=== PATIENT | female | born 1975 | race Caucasian/White ===

== ENCOUNTER → 2017-11-17 15:01 | Outpatient (CLI) | payer OTHER, SELFPAY ==
[2017-11-28 15:20] LABS: HPV HC, High Risk Negative (Negative); HPV Reflexed? YES, CHARGE PATIENT
== END ==
PROVIDERS: Visit Provider Obstetrics & Gynecology
DX: Z12.4 Encounter for screening for malignant neoplasm of cervix (principal)
CPT/HCPCS: 87624; 88175; G0145

== ENCOUNTER → 2018-07-20 14:06 | Outpatient (CLI) | payer OTHER, SELFPAY ==
--- NOTE | 2018-07-20 14:11 | BI_ITS ---
MAMMOGRAPHY - BILATERAL SCREENING 3-D JORGE SYNTHESIS REASON FOR EXAM: Female, 43 years old. Bilateral Screening 3-D tomosynthesis PERTINENT HISTORY: No significant family history. TECHNIQUE: 2-D mammograms and 3-D Jorge synthesis of the breast (s) were performed. CAD was performed. COMPARISON: None. FINDINGS: The breast composition is heterogeneous fibroglandular tissue may obscure tiny masses. In the right breast and near the chest wall there is 1.8 x 0.9 cm mass-like lesion contains microcalcifications which are not branching but slightly increased in number since the previous examination December 22, 2015 and this is slightly more prominent or slightly denser than before, for this reason I do highly recommend MRI with and without contrast for better assessment. Otherwise no skin thickening or nipple retraction. There are multiple benign looking lymph nodes involving both axillary areas. BI/SCREENING MAMM (CAD), BILAT IMPRESSION: Mass-like lesion near the chest wall seen better in the craniocaudal view on the right side that contains microcalcifications although these calcifications are not branching but slightly increased in number since the previous exam of November 2015 for which MRI is recommended with contrast. ASSESSMENT CATEGORY: BIRADS-0 Approximately 10% of breast cancers are not detected by mammography. A normal mammogram should not delay biopsy of a clinically suspicious abnormality. Electronically Signed: Belen Sexton, at 8:32 EST Tel , Service support ,
== END ==
PROVIDERS: Referring Provider Obstetrics & Gynecology; Visit Provider Obstetrics & Gynecology
DX: Z12.31 Encounter for screening mammogram for malignant neoplasm of breast (principal)
CPT/HCPCS: 77063; 77067

== ENCOUNTER → 2018-08-07 12:20 | Outpatient (CLI) | payer OTHER, SELFPAY ==
--- NOTE | 2018-08-07 12:27 | MRI_ITS ---
STUDY: BILATERAL BREAST MR WITHOUT AND WITH CONTRAST REASON FOR EXAM: Female, 43 years old. Breast MRI recommended from screening mammogram dated July 20, 2018. TECHNIQUE: Multi-sequence multi-echo imaging of both breasts was performed with a dedicated breast coil. T1-weighted and T2-weighted images were performed before the administration of contrast. T1-weighted images were also performed after the administration of 11ml mL of Gadavist contrast intravenously without complications. COMPARISON: Screening mammogram dated July 20, 2018 and December 22, 2015. FINDINGS: RIGHT BREAST: The breast tissue is scattered fibroglandular densities with minimal background enhancement. There are no abnormal enhancing masses or areas of non-mass enhancement in the right breast. There is no abnormality in the area of the calcifications described on the screening mammogram. The patient should return for compression magnification ML and cc views of the right breast for further evaluation of the calcifications. These calcifications are marked on the MLO and CC views. LEFT BREAST: The breast tissue is scattered fibroglandular densities with minimal background enhancement. There are no abnormal enhancing masses or areas of non-mass enhancement in the left breast. There are no enlarged or abnormal lymph nodes. There is no abnormality in the visualized regions of the chest or liver. MRI/Breast Bilateral W/O and W IMPRESSION: Unremarkable breast MR examination with contrast. Patient should return for diagnostic mammographic workup of calcifications described on the screening mammogram, as outlined above. CATEGORY: BIRADS Category 0: Incomplete. Need additional imaging evaluation. A letter regarding these results will be sent to the patient by the facility within 30 days. Electronically Signed: Tico Guzmán MD at 12:04 EST , Service support ,
[2018-08-07 13:01] LABS: CREATININE FINGERSTICK 0.8 mg/dL (0.55-1.02); EGFR FINGERSTICK > 60.0000 mL/min (>60)
== END ==
PROVIDERS: Referring Provider Obstetrics & Gynecology; Visit Provider Obstetrics & Gynecology
DX: R92.2 Inconclusive mammogram (principal); N63.10 Unspecified lump in the right breast, unspecified quadrant; Z01.812 Encounter for preprocedural laboratory examination
CPT/HCPCS: 77049; A9585; C8908

== ENCOUNTER → 2018-08-16 09:30 | Outpatient (CLI) | payer OTHER, SELFPAY ==
--- NOTE | 2018-08-16 09:52 | BI_ITS ---
MAMMOGRAPHY - UNILATERAL DIAGNOSTIC: RIGHT BREAST REASON FOR EXAM: Female, 43 years old. Abnormal screening mammogram. PERTINENT HISTORY: Non-contributory. TECHNIQUE: Magnification spot views of the right breast were obtained in the ML and craniocaudal views. CAD: Full Field Digital Mammography with Computer Added Detection was performed. COMPARISON: Comparison is made with prior mammogram dated July 20, 2018. FINDINGS: Breast Composition: The breasts are heterogeneously dense, which may obscure small masses. The cluster microcalcification is once again seen in the deep mid aspect of the breast. A biopsy is recommended for further evaluation. No other significant abnormalities are identified. BI/DIAG MAMM W/CAD, UNILAT IMPRESSION: The microcalcifications are once again seen. A biopsy recommended for further evaluation. ASSESSMENT CATEGORY: BIRADS Category 4: Suspicious - Biopsy Should Be Considered. A letter regarding these results will be sent to the patient by the facility within 30 days. Approximately 10% of breast cancers are not detected by mammography. A normal mammogram should not delay biopsy of a clinically suspicious abnormality. Electronically Signed: Yahir Linder MD at 11:01 EST Tel [phone], Service support ,
--- OUTSIDE RECORDS SUMMARY | 2018-10-20 23:21 | XMS RPT_ITS ---
:1975 Author Organization OHIP Care Team Providers Name Role Phone Shayla Lowe Attending Unavailable Shayla Lowe Referring Unavailable Primay Care Physicia, No Primary Care Unavailable Shayla Lowe Attending Unavailable Gerri Loweily Referring Unavailable Primay Care Physicia, No Primary Care Unavailable JairsGerriShayla Attending Unavailable Gerri Loweily Referring Unavailable Primay Care Physicia, No Primary Care Unavailable Javier Kellre Attending Unavailable Mynor, Shayla Referring Unavailable Javier Keller Attending Unavailable Primay Care Physicia, No Primary Care Unavailable Javier Keller Attending Unavailable Primay Care Physicia, No Primary Care Unavailable Javier Keller Consulting Unavailable Shayla Lowe Attending Unavailable Primay Care Physicia, No Primary Care Unavailable PROBLEMS PROBLEMS DATE TYPE CONDITION / CODE ATTENDING STATUS SOURCE 08/21/2018 Unknown R92.0 - Mammographic Krishna Active [place] microcalcification Javier Vanegas found on diagnostic Hospital imaging of breast / Repository R92.0(ICD-10) 08/16/2018 Unknown R92.2 - Inconclusive Shayla Lowe Active [place] mammogram / Community R92.2(ICD-10) Hospital Repository 11/17/2017 Unknown Z12.4 - Encounter for Shayla Lowe Active [place] screening for malignant Community neoplasm of cervix / Hospital Z12.4(ICD-10) Repository PROCEDURES PROCEDURES No Procedure Records FoundRESULTS RESULTS OPERATIVE REPORT Observed: 08/22/2018 Status: F Source: [place] 12:48 PM [facility] REPOSITORY [facility] Medical Records Department [address] [place] [address] Operative Report 08/22/18 1245 MR#: [id number] Acct: [id number] Name: ANDREW MOTA Rep #: [id number] : 1975 43 From: Javier Keller MD PCP: Care Physician, No Primary Status: REG CLI Y Location: [facility] Problem List (1) Microcalcification of right breast on mammogram Status: Acute Report of Operation Date of Procedure: 08/22/18 Pre-Operative Diagnosis: Microcalcifications of the right breast Post-Operative Diagnosis: Same Surgery/Procedure Performed:: Right stereotactic breast biopsy Type of Anesthesia:: Local Estimated Blood Loss (mL): < 25 cc Description of Procedure: Patient was brought into the mammography unit. Placed in the prone position on the Stewart table. The right breast was brought down through the opening. A lateral to medial view was obtained. Also -15 degrees views were obtained. I targeted on the microcalcifications. I prepped the breast with Betadine. I injected local. A skin debbie was made. Needle was placed in the prefire position. 2 more stereo views were obtained showing the needle to be adequately targeted. I fired the needle took 360 degrees circumferential biopsies. I x-ray my specimens. Microcalcifications were present. I backed the needle off 7 mm and placed a Gelfoam titanium clip into the wound. I removed the needle. I obtain 2 more stereo views showing the clip to be in good placement. Steri-Strips are applied sterile dressings were applied and the patient tolerated the procedure well. - Admit VTE Documentation VTE Present on Admission: No VTE Mechan Device Prophylaxis: None VTE Pharm Prophylaxis ordered?: No Reason prophylaxis not ordered:: Treatment Not Indicated 08/22/18 1248 <Electronically signed by Javier Keller MD> Date Javier Keller MD CC: No Primary Care Physician; Javier Keller MD; Shayla Lowe MD Signed BREAST BIOPSY Observed: 08/22/2018 Status: F Source: [place] (CHOOSE SITE) 11:45 AM [facility] REPOSITORY Patient: ANDREW MOTA : 1975 (43/F) Acct Num: [id number] Phys: Krishna TAMAYO,Javier Unit Num: [id number] Loc: [facility] Specimen: [id number] Received: 08/22/18 - 1211 Spec Type: BREAST BX TISSUES 1 TISSUES: Right breast, NOS GROSS DESCRIPTION Received is one container labeled with the patient's name and not further designated. The specimen consists of multiple irregular and elongated fragments of pugh-yellow soft tissue that in aggregate measure 6 x 3.5 x 0.2 cm. The specimen is totally submitted in three cassettes. / AM:lavinia 08/22/18 TC:5 CPT: 99164 HEADER OPERATION: Right breast stereotactic biopsy PRE-OP DIAGNOSIS: Right breast microcalcifications deep mid breast TISSUE SUBMITTED: Right breast core tissue ISCHEMIC TIME: 2 minutes FIXATION TIME: 7.5 hours MICROSCOPIC DESCRIPTION Slides are reviewed. MICROSCOPIC DIAGNOSIS Right breast, stereotactic core biopsy: Focal intraductal hyperplasia without atypia. Fibrocystic change. Banal microcalcifications. No evidence of malignancy. AM:lavinia 08/23/18 Signed Florentino Bansal DO 08/23/18 <signature on file> Performed By: #### PBRBX #### [facility] [place], [address] SURGERY VISIT REPORT Observed: 08/21/2018 Status: F Source: [place] 9:23 AM [facility] REPOSITORY [facility] [address] [place] [address] OFFICE VISIT Date of Service: 08/21/18 MR#: [id number] Acct: [id number] Name: ANDREW MOTA Rep #: [id number] : 1975 Provider: Javier Keller MD Age/Sex: 43/F Location: [facility] Status: Signed Intake Vital Signs08/21/18 Height 5 ft 9 in 08/21/18 Weight: 173 lb 11 oz Intake Visit Reasons: L Breast [place] 4 Berry Grower Required: No Is patient in pain?: No Allergies No Known Allergies Allergy (Unverified 08/21/18 09:11) Medications NK 08/21/18 [History Confirmed 08/21/18] PFSH Medical History Abnormal mammogram of right breast (Acute) Hypertension (Chronic) Surgical History No history of previous surgery (Acute) Family History Mother Arthritis Hypertension Father Hypertension Social History Smoking Status: Never smoker alcohol intake: never substance use type: does not use HPI HPI HPI: ANDREW MOTA, is a 43 F who presents to the office today for who presents with an abnormal mammogram patient had a mammogram and ultrasound and an MRI which showed micro calcifications in her right breast which were deep to the chest wall and best seen on the cc view. This is a change from her previous mammogram. Her MRI of the breast was read as negative. She has not been noticing any changes in her breast exam. She has had no nipple discharge. She is not complaining of any other new lumps or bumps. She has never had a breast biopsy before. ROS General General: No weight change, appetite, fatigue, colon cancer, breast cancer or weakness HEENT HEENT: Yes eye surgery; no difficulty swallowing, eye injury, swollen glands or hoarseness Endo Endocrine: No thyroid disease, diabetes mellitus, thyroid cancer, Hair loss, heat intolerance or cold intolerance Skin Skin: No rash or changing moles Breast Breast: No left breast lump, right breast lump, nipple discharge, breast pain, abnormal mammogram, abnormal US or breast enlargement Musc Musculoskeletal: No back problems, arthritis, rheumatoid arthritis, gout or joint pain Cardio Cardiovascular: Yes high blood pressure; no murmur, pacemaker, heart disease, atrial fibrillation, heart attack, heart stent, palpitations, shortness of breat with exertion or chest pain Psych Psychiatric: No depression, anxiety or hearing voices Resp Respiratory: No shortness of breath, No sleep apnea, No cough, No COPD, No asthma, No emphysema, No wheezing Gastro Gastrointestinal: No abdominal pain, No nausea or vomiting, No diarrhea, No constipation, No blood in stool, No acid reflux, No hemorrhoids, No ulcers, No gallbladder problem, No black,tarry stools Lars Hematologic: No blood thinners, No blood disorders, No bleeding, No anemia, No blood clots Neuro Neurologic: No system reviewed and no additional complaints, except as docu, No as per HPI, No abnormal walking, No abnormal hearing, No abnormal movements, No abnormal speech, No behavioral changes, No burning sensations, No confusion, No seizure-like activity, No unsteadiness, No dizziness, No localized weakness, No frequent falls, No headache(s), No lack of coordination, No loss of vision, No memory loss, No numbness, No other visual disturbances, No radiating pain, No restless legs, No sensory deficit, No fainting, No tingling, No tremor(s), No weakness, No other Exam HENMT Head: normal to inspection, normocephalic, atraumatic Mouth: moist mucous membranes, oropharynx normal Eyes General: appearance normal, both eyes and all related structures Sclera: sclerae normal Neck Neck: no lymphadenopathy noted, trachea midline Neck mass: No Thyroid: thyroid normal Lymphatic: no lymphadenopathy noted Chest Breast inspection: normal inspection of the breasts Breast Palpation: No nipple discharge Other: Normal pendulous breasts bilaterally. No lumps or bumps identified. Axillary exam is negative bilaterally. Supraclavicular exam is negative bilaterally Resp Other: Respiratory Exam: Deferred Cardio Heart Sounds: no murmurs Other: Cardiac Exam: Deferred GI Other: GI Exam: Deferred Other: Rectal Exam: Deferred Extrem Other: Extremity Exam: Deferred Assessment AND Plan Problems 1. Breast microcalcification, mammographic R92.0 Plan I have discussed above with the patient. I have recommended ultrasound guided needle core right breast biopsy with vacuum assistance. I have described the procedure to the patient. I have discussed with the patient that sometimes the ultrasound lesion may be artifact and is user dependent and therefore prior to undergoing the procedure, the patient will have a definitive US to ensure that the lesion is truly present and is not artifact. A marker clip will be placed to identify the location. Patient has been counseled to the risks/benefits of the procedure. I have explained the risks of the surgery, including but not limited to: infection, bleeding, injury to any blood vessels/nerves, scar tissue, missing the lesion, further surgery, etc. - the patient understands and agrees to proceed. I have answered all of the patient's questions to her satisfaction and she has no further questions. Blood pressure is elevated and I believe that she needs to be treated and seen by her primary care physician we gave her numerous options to help facilitate this this is something that she will be doing on her own. Coding Level of Care Code Off vis,new,level 3 Diagnoses Breast microcalcification, mammographic R92.0 08/21/18 0923 <Electronically signed by Javier Keller MD> Date Javier Keller MD Cosigner Signature: Date (if applicable) CC: Shayla Lowe MD DIAG MAMM W/CAD, Observed: 08/16/2018 Status: F Source: [place] 9:52 AM [facility] REPOSITORY [facility] Imaging Services [address] [place] [address] DIAG MAMM W/CAD, UNILNIKOLAI MR#: [id number] Acct: [id number] Name: ANDREW MOTA Rep #: [id number] : 1975 F 43 From: Yahir Linder MD PCP: Care Physician, No Primary Status: REG CLI Study: DIAG MAMM W/CAD, UNILAT Date of Exam: 08/16/18 Exam# [id number] Ordering Dr: Shayla Lowe MD MAMMOGRAPHY - UNILATERAL DIAGNOSTIC: RIGHT BREAST REASON FOR EXAM: Female, 43 years old. Abnormal screening mammogram. PERTINENT HISTORY: Non-contributory. TECHNIQUE: Magnification spot views of the right breast were obtained in the ML and craniocaudal views. CAD: Full Field Digital Mammography with Computer Added Detection was performed. COMPARISON: Comparison is made with prior mammogram dated July 20, 2018. FINDINGS: Breast Composition: The breasts are heterogeneously dense, which may obscure small masses. The cluster microcalcification is once again seen in the deep mid aspect of the breast. A biopsy is recommended for further evaluation. No other significant abnormalities are identified. BI/DIAG MAMM W/CAD, UNILAT IMPRESSION: The microcalcifications are once again seen. A biopsy recommended for further evaluation. ASSESSMENT CATEGORY: BIRADS Category 4: Suspicious - Biopsy Should Be Considered. A letter regarding these results will be sent to the patient by the facility within 30 days. Approximately 10% of breast cancers are not detected by mammography. A normal mammogram should not delay biopsy of a clinically suspicious abnormality. Electronically Signed: Yahir Linder MD at 11:01 EST Tel [phone], Service support , CC: No Primary Care Physician; Shayla Lowe MD Senior Stereo Compiler Team Lead: Signed CREATININE FINGERSTICK Collected: 08/07/2018 Status: F Source: [place] 12:56 PM [facility] REPOSITORY TYPE CODE TESTS RESULT OUT OF RANGE REFERENCE UNITS LAB L9100.0210 0.55-1.02 mg/dL Normal CREATININE WB 0.8 LAB L9100.0220 >60 mL/min EGFR WB Normal > 60.0000 Performed By: #### L9100.0200 #### [facility] Point of Care [address] [place] [address] BREAST BILATERAL W/O Observed: 08/07/2018 Status: F Source: [place] AND W 12:28 PM [facility] REPOSITORY [facility] Imaging Services [address] [place] [address] Breast Bilateral W/O and W MR#: [id number] Acct: [id number] Name: ANDREW MOTA Rep #: [id number] : 1975 F 43 From: Tico Guzmán MD PCP: Care Physician, No Primary Status: REG CLI Study: Breast Bilateral W/O and W Date of Exam: 08/07/18 Exam# [id number] Ordering Dr: Shayla Lowe MD STUDY: BILATERAL BREAST MR WITHOUT AND WITH CONTRAST REASON FOR EXAM: Female, 43 years old. Breast MRI recommended from screening mammogram dated July 20, 2018. TECHNIQUE: Multi-sequence multi-echo imaging of both breasts was performed with a dedicated breast coil. T1-weighted and T2- weighted images were performed before the administration of contrast. T1- weighted images were also performed after the administration of 11ml mL of Gadavist contrast intravenously without complications. COMPARISON: Screening mammogram dated July 20, 2018 and December 22, 2015. FINDINGS: RIGHT BREAST: The breast tissue is scattered fibroglandular densities with minimal background enhancement. There are no abnormal enhancing masses or areas of non-mass enhancement in the right breast. There is no abnormality in the area of the calcifications described on the screening mammogram. The patient should return for compression magnification ML and cc views of the right breast for further evaluation of the calcifications. These calcifications are marked on the MLO and CC views. LEFT BREAST: The breast tissue is scattered fibroglandular densities with minimal background enhancement. There are no abnormal enhancing masses or areas of non-mass enhancement in the left breast. There are no enlarged or abnormal lymph nodes. There is no abnormality in the visualized regions of the chest or liver. MRI/Breast Bilateral W/O and W IMPRESSION: Unremarkable breast MR examination with contrast. Patient should return for diagnostic mammographic workup of calcifications described on the screening mammogram, as outlined above. CATEGORY: BIRADS Category 0: Incomplete. Need additional imaging evaluation. A letter regarding these results will be sent to the patient by the facility within 30 days. Electronically Signed: Tico Guzmán MD at 12:04 EST , Service support , CC: No Primary Care Physician; Shayla Lowe MD Senior Stereo Compiler Team Lead: Signed SCREENING MAMM (CAD), Observed: 07/20/2018 Status: F Source: [place] B[place] 2:11 PM [facility] REPOSITORY [facility] Imaging Services [address] [place] [address] SCREENING MAMM (CAD), BILAT MR#: [id number] Acct: [id number] Name: ANDREW MOTA Rep #: [id number] : 1975 F 43 From: Belen Sexton MD PCP: Care Physician, No Primary Status: REG CLI Study: SCREENING MAMM (CAD), BILAT Date of Exam: 07/20/18 Exam# [id number] Ordering Dr: Shayla Lowe MD MAMMOGRAPHY - BILATERAL SCREENING 3-D LUIS SYNTHESIS REASON FOR EXAM: Female, 43 years old. Bilateral Screening 3-D tomosynthesis PERTINENT HISTORY: No significant family history. TECHNIQUE: 2-D mammograms and 3-D Luis synthesis of the breast (s) were performed. CAD was performed. COMPARISON: None. FINDINGS: The breast composition is heterogeneous fibroglandular tissue may obscure tiny masses. In the right breast and near the chest wall there is 1.8 x 0.9 cm mass-like lesion contains microcalcifications which are not branching but slightly increased in number since the previous examination December 22, 2015 and this is slightly more prominent or slightly denser than before, for this reason I do highly recommend MRI with and without contrast for better assessment. Otherwise no skin thickening or nipple retraction. There are multiple benign looking lymph nodes involving both axillary areas. BI/SCREENING MAMM (CAD), BILAT IMPRESSION: Mass-like lesion near the chest wall seen better in the craniocaudal view on the right side that contains microcalcifications although these calcifications are not branching but slightly increased in number since the previous exam of November 2015 for which MRI is recommended with contrast. ASSESSMENT CATEGORY: BIRADS-0 Approximately 10% of breast cancers are not detected by mammography. A normal mammogram should not delay biopsy of a clinically suspicious abnormality. Electronically Signed: Belen Sexton, at 8:32 EST Tel , Service support , CC: No Primary Care Physician; Shayla Lowe MD Senior Stereo Compiler Team Lead: Signed PAP I-G W/RFX HRHPV Collected: 11/17/2017 Status: F Source: [place] 11:00 AM [facility] REPOSITORY Order Comment: CYTOLOGY INFORMATION: - CLINICAL INFORMATION: - DATE LMP/MENOPAUSE: 10/17/17 LMP - COLLECTION VIAL: Thin Prep Vial - NURSING HOME SOCIAL WORKER SOURCE: CERVICAL/ENDOCERVICAL - COLLECTION TECHNIQUE: BRUSH/SPATULA Specimen Comment: [id number] Specimen Comment: No. of containers..01 ThinPrep Vial TYPE CODE TESTS RESULT OUT OF REFERENCE UNITS RANGE LAB L7400.0800 . High DIAGN Comment Result Comment: EPITHELIAL CELL ABNORMALITY. ATYPICAL SQUAMOUS CELLS OF UNDETERMINED SIGNIFICANCE. LAB L7400.0900 . Normal ADEQ Comment Result Comment: Satisfactory for evaluation. Endocervical and/or squamous metaplastic cells (endocervical component) are present. LAB L7400.1300 . High RECOMM Comment Result Comment: Suggest follow up as clinically appropriate. LAB L7400.1400 . Normal PERFORM Comment Result Comment: Ara Plasencia, Rn Palliative Care (ASCP) LAB L7400.1700 . Normal SIGN Comment Result Comment: Meg Trejo MD, Pathologist LAB L7400.1720 . Normal Path prov. Comment ICD9 Result Comment: R87.610 LAB L7400.2575 . Normal TEST METHOD Comment Result Comment: This liquid based ThinPrep(R) pap test was screened with the use of an image guided system. LAB L7400.2600 . Normal . COMM LAB L7400.2700 . Normal PAPSMR Comment Result Comment: The Pap smear is a screening test designed to aid in the detection of premalignant and malignant conditions of the uterine cervix. It is not a diagnostic procedure and should not be used as the sole means of detecting cervical cancer. Both false-positive and false-negative reports do occur. LAB L7400.2800 . Normal HPV RFLX Comment Result Comment: See below for HPV testing results. LAB L7400.2900 Negative Normal HPV Negative HC,HGH RISK Result Comment: This high-risk HPV test detects thirteen high-risk types (16/18/31/33/35/39/45/51/52/56/58/59/68) without differentiation. Performed at: [address] [id number] Military Technology Specialist: Meg Trejo MD, Phone: [phone] Performed at: =[facility] [id number] Military Technology Specialist: Meg Trejo MD, Phone: [phone] Performed By: #### L7400.0350 #### [facility] (refer to report for specific site) refer to report for address and phone number ALLERGIES ALLERGIES DATE TYPE / CODE NAME / CODE REACTION SEVERITY SOURCE 08/21/2018 Drug No Known Unknown [place] [facility] Allergy/4160 Allergies/F00 [facility] 111[address](SNOMED 9446416(RXNOR Repository CT) M) ENCOUNTERS ENCOUNTERS ADMIT/DISCHARGE ACCOUNT ADMITTING ENCOUNTER LOCATION SOURCE NUMBER CLASS 08/22/2018 [id number] Ambulatory BMSBuilding:B [place] 5 [place].[facility] Repository 08/22/2018 [id number] Ambulatory [place] 0 [facility] ing:[facility] Repository 08/21/2018/ [id number] Ambulatory BMSBuilding:B [place] 9 5 [facility] Repository 08/16/2018 [id number] Ambulatory [place] 2 [facility] ing:OPBI Repository 08/07/2018 [id number] Ambulatory [place] 9 [facility] ing:MRI Repository 07/20/2018 [id number] Ambulatory [place] 2 [facility] ing:OPBI Repository 11/17/2017 [id number] Ambulatory [place] 1 [facility] ing:LABSPEC Repository PAYERS PAYERS ENCOUNTER GUARANTOR PAYER SUBSCRIBER SOURCE 08/22/2018 ANDREW Paiz Primary ALEE Muñoz [id number] Insurance:AULTCAREPol CHIOFALODOB: Community SMUCKER icy Number: [id number] [place], [place] [id number] Repository [address]Fbe: 330) Date:1179-70-62LK [phone] () [place] [address]YZ: 08/22/2018 Secondary NOT GIVENUNK [place] Insurance:SELF PAY [facility] Number: Effective Repository Date:2018-08-22 08/22/2018 ANDREW Paiz Primary ALEE Muñoz [id number] Insurance:AULTCAREPol CHIOFALODOB: [facility] [employer] icy Number: [id number] [place], [place] [id number] Repository [address]Ypx: (330) Date:7252-89-45KX [phone] () [address] [address]JR: 08/22/2018 Secondary NOT GIVENUNK [place] Insurance:SELF PAY [facility] Number: Effective Repository Date:2018-08-21 08/21/2018 ANDREW Paiz Primary ALEE Muñoz [id number] Insurance:AULTCAREPol CHIOFALODOB: [facility] [employer] icy Number: [id number] [place] [id number] Repository [address]Dfj: (330) Date:9463-13-21EZ [phone] () [address] [address]HV: 08/21/2018 Secondary NOT GIVENUNK [place] Insurance:SELF PAY [facility] Number: Effective Repository Date:2018-08-20 08/16/2018 ALEE D Primary ALEE Silvia [place] [id number] Insurance:AULTCAREPol CHIOFALODOB: Community SMSTACIA icy Number: [id number] [id number] Repository [address]Udk: (330) e Date:5050-99-41TS [phone] () [address], [place] [address]EI: 08/16/2018 Secondary NOT GIVENUNK [place] Insurance:SELF PAY [facility] Number: Effective Repository Date:2018-08-10 08/07/2018 ALEE D Primary ALEE D [place] [id number] Insurance:AULTCAREPol [facility] Number: [id number], [place] [id number] Repository [address]Ynz: 330) e Date:1587-33-29ZC [phone] () [address], [place] [address]HX: 08/07/2018 Secondary ANDREW M [place] Insurance:[facility] PACKAGE CHIOFALODOB: [facility] Number: [id number] 0Effective Repository Date:2018-07-27 08/07/2018 Tertiary NOT GIVENUNK [place] Insurance:SELF PAY [facility] Number: Effective Repository Date:2018-07-27 07/20/2018 ALEE D Primary ALEE D [place] [id number] Insurance:AULTCAREPol CHIOFALODOB: [facility] ArcMailSTACIA icy Number: [id number], [place] [id number] Repository [address]Rje: (330) e Date:4998-32-46XM [phone] () [address], [place] [address]SM: 07/20/2018 Secondary NOT GIVENUNK [place] Insurance:SELF PAY [facility] Number: Effective Repository Date:2018-07-13 11/17/2017 Alee [id number] Primary Alee [place] Insurance:AULTCAREPol ChiofaloDOB: [place], [place] icy Number: [id number] [facility] [address]Ejx: (232) [id number] Repository [phone] () e Date:1014-00-02FN [address], [place] [address]TS: 11/17/2017 Secondary NOT GIVENUNK [place] Insurance:SELF PAY [facility] Number: Effective Repository Date:2017-11-17
== END ==
PROVIDERS: Referring Provider Obstetrics & Gynecology; Visit Provider Obstetrics & Gynecology
DX: R92.8 Other abnormal and inconclusive findings on diagnostic imaging of breast (principal)
CPT/HCPCS: 77065

== ENCOUNTER → 2018-08-22 11:04 | Outpatient (CLI) | payer OTHER, SELFPAY ==
[2018-08-21 09:09] VITALS: BMI 25.6
--- NOTE | 2018-08-22 11:45 | BRBX_PTH ---
PATIENT: ANDREW MOTA LOC: [facility] U#:[id number] AGE/SX: 50/F ROOM: RE08/22/[address]: Dr. Javier Keller MD : 1975 BED: DIS: SPEC #: [id number] RECD: 08/22/18 12:12 STATUS: DANIEL RENakia #: [id number] RACH: 08/22/18 11:[address]: Javier Keller DEPT: SURGICAL PATHOLOGY RECD BY: Nick Martinez ENTERED: 08/22/18 12:37 SP TYPE: BREAST BX OTHR DR: No Primary Care Phys Tissues: Right breast, NOS Procedures: Surgery Specimen Level IV HEADER OPERATION: Right breast stereotactic biopsy PRE-OP DIAGNOSIS: Right breast microcalcifications deep mid breast TISSUE SUBMITTED: Right breast core tissue ISCHEMIC TIME: 2 minutes FIXATION TIME: 7.5 hours MICROSCOPIC DIAGNOSIS Right breast, stereotactic core biopsy: Focal intraductal hyperplasia without atypia. Fibrocystic change. Banal microcalcifications. No evidence of malignancy. AM:lavinia 08/23/18 MICROSCOPIC DESCRIPTION Slides are reviewed. GROSS DESCRIPTION Received is one container labeled with the patient's name and not further designated. The specimen consists of multiple irregular and elongated fragments of pugh-yellow soft tissue that in aggregate measure 6 x 3.5 x 0.2 cm. The specimen is totally submitted in three cassettes. / AM:lavinia 08/22/18 TC:5 CPT: 48087
--- NOTE | 2018-08-22 12:45 | PCM.OPRPT ---
Problem List (1) Microcalcification of right breast on mammogram Status: Acute Report of Operation Date of Procedure: 08/22/18 Pre-Operative Diagnosis: Microcalcifications of the right breast Post-Operative Diagnosis: Same Surgery/Procedure Performed:: Right stereotactic breast biopsy Type of Anesthesia:: Local Estimated Blood Loss (mL): < 25 cc Description of Procedure: Patient was brought into the mammography unit. Placed in the prone position on the Stewart table. The right breast was brought down through the opening. A lateral to medial view was obtained. Also -15 degrees views were obtained. I targeted on the microcalcifications. I prepped the breast with Betadine. I injected local. A skin debbie was made. Needle was placed in the prefire position. 2 more stereo views were obtained showing the needle to be adequately targeted. I fired the needle took 360 degrees circumferential biopsies. I x-ray my specimens. Microcalcifications were present. I backed the needle off 7 mm and placed a Gelfoam titanium clip into the wound. I removed the needle. I obtain 2 more stereo views showing the clip to be in good placement. Steri-Strips are applied sterile dressings were applied and the patient tolerated the procedure well. - Admit VTE Documentation VTE Present on Admission: No VTE Mechan Device Prophylaxis: None VTE Pharm Prophylaxis ordered?: No Reason prophylaxis not ordered:: Treatment Not Indicated
--- NOTE | 2018-08-22 12:48 | OP.PCM_ITS ---
Problem List (1) Microcalcification of right breast on mammogram Status: Acute Report of Operation Date of Procedure: 08/22/18 Pre-Operative Diagnosis: Microcalcifications of the right breast Post-Operative Diagnosis: Same Surgery/Procedure Performed:: Right stereotactic breast biopsy Type of Anesthesia:: Local Estimated Blood Loss (mL): < 25 cc Description of Procedure: Patient was brought into the mammography unit. Placed in the prone position on the Stewart table. The right breast was brought down through the opening. A lateral to medial view was obtained. Also -15 degrees views were obtained. I targeted on the microcalcifications. I prepped the breast with Betadine. I injected local. A skin debbie was made. Needle was placed in the prefire position. 2 more stereo views were obtained showing the needle to be adequately targeted. I fired the needle took 360 degrees circumferential biopsies. I x- ray my specimens. Microcalcifications were present. I backed the needle off 7 mm and placed a Gelfoam titanium clip into the wound. I removed the needle. I obtain 2 more stereo views showing the clip to be in good placement. Steri- Strips are applied sterile dressings were applied and the patient tolerated the procedure well. - Admit VTE Documentation VTE Present on Admission: No VTE Mechan Device Prophylaxis: None VTE Pharm Prophylaxis ordered?: No Reason prophylaxis not ordered:: Treatment Not Indicated
--- OUTSIDE RECORDS SUMMARY | 2018-10-24 08:55 | XMS RPT_ITS ---
:1975 Author Organization OHIP Care Team Providers Name Role Phone Shayla Lowe Attending Unavailable Shayla Lowe Referring Unavailable Primay Care Physicia, No Primary Care Unavailable Shayla Lowe Attending Unavailable Gerri Loweily Referring Unavailable Primay Care Physicia, No Primary Care Unavailable JairsShayla Attending Unavailable Gerri Loweily Referring Unavailable Primay Care Physicia, No Primary Care Unavailable Javier Keller Attending Unavailable Mynor, Shayla Referring Unavailable Javier [...] 08/22/2018 Status: F Source: [place] 12:48 PM [facility] REPOSITORY [facility] Medical Records Department [address] [place] [address] Operative Report 08/22/18 1245 MR#: [id number] Acct: [id number] Name: ANDREW MOTA Rep #: [id number] : 1975 43 From: Javier Keller MD [...] F Source: [place] ([place]OOSE S[place]) 11:45 AM [facility] REPOSITORY Patient: ANDREW MOTA : 1975 (43/F) Acct Num: [id number] Phys: Krishna TAMAYO,Javier Unit Num: [id number] Loc: [place] Specimen: [id number] Received: 08/22/18 - [...] three cassettes. / AM:lavinia 08/22/18 TC:5 CPT: 34759 HEADER OPERATION: Right breast stereotactic biopsy PRE-OP [...] file> Performed By: #### PBRBX #### [facility] [place], [address] SURGERY VISIT REPORT Observed: 08/21/2018 Status: F Source: [place] 9:23 AM [facility] REPOSITORY [facility] 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 Required: No Is patient in pain?: No [...] F Source: [place] 9:52 AM [facility] REPOSITORY [facility] Imaging Services [address] [place] [address] DIAG MAMM W/CAD, UNILNIKOLAI MR#: [id number] Acct: [id number] Name: ANDREW MOTA Rep #: [id number] : 1975 F 43 From: Yahir Linder MD PCP: Care Physician, No Primary Status: REG CLI Study: DIAG MAMM W/CAD, UNILAT Date of Exam: 08/16/18 Exam# [id number] Ordering Dr: Shayla Lowe MD MAMMOGRAPHY - [...] Yahir Linder MD at 11:01 EST Tel [phone], Service support , CC: No Primary Care Physician; Shayla Lowe MD Cloth Dye Range Operator: Signed CREATININE FINGERSTICK Collected: 08/07/2018 Status: F Source: [place] 12:56 PM [facility] REPOSITORY TYPE CODE TESTS RESULT OUT OF RANGE REFERENCE UNITS LAB L9100.0210 0.55-1.02 mg/dL Normal CREATININE WB 0.8 LAB L9100.0220 >60 mL/min EGFR WB Normal > 60.0000 Performed By: #### L9100.0200 #### [facility] Point of Care [address] [place] [address] BREAST BILATERAL W/O Observed: 08/07/2018 Status: F Source: [place] AND W 12:28 PM [facility] REPOSITORY [facility] Imaging Services [address] [place] [address] Breast Bilateral W/O and W MR#: [id number] Acct: [id number] Name: ANDREW MOTA Rep #: [id number] : 1975 F 43 From: Tico Guzmán MD PCP: Care Physician, No Primary Status: REG CLI Study: Breast Bilateral W/O and W Date of Exam: 08/07/18 Exam# [id number] Ordering Dr: Shayla Lowe MD STUDY: BILATERAL [...] No Primary Care Physician; Shayla Lowe MD Cloth Dye Range Operator: Signed SCREENING MAMM (CAD), Observed: 07/20/2018 Status: F Source: [place] 2:11 PM [facility] REPOSITORY [facility] Imaging Services [address] [place] [address] SCREENING MAMM (CAD), BILAT MR#: [id number] Acct: [id number] Name: ANDREW MOTA Rep #: [id number] : 1975 F 43 From: Belen Sexton MD PCP: Care Physician, No Primary Status: REG CLI Study: SCREENING MAMM (CAD), BILAT Date of Exam: 07/20/18 Exam# [id number] Ordering Dr: Shayla Lowe MD MAMMOGRAPHY - [...] No Primary Care Physician; Shayla Lowe MD Cloth Dye Range Operator: Signed PAP I-G W/RFX HRHPV Collected: 11/17/2017 Status: F Source: [place] 11:00 AM [facility] REPOSITORY Order Comment: CYTOLOGY INFORMATION: - CLINICAL INFORMATION: - DATE LMP/MENOPAUSE: 10/17/17 LMP - COLLECTION VIAL: Thin Prep Vial - 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 of containers..01 ThinPrep Vial [...] Normal PERFORM Comment Result Comment: Ara Plasencia, Mix Crusher Operator (ASCP) LAB L7400.1700 . Normal SIGN Comment [...] high-risk types (16/18/31/33/35/39/45/51/52/56/58/59/68) without differentiation. Performed at: [address] [id number] Agriculture Scientist: Meg Trejo MD, Phone: [phone] Performed at: =[facility] [id number] Agriculture Scientist: Meg Trejo MD, Phone: [phone] Performed By: #### L7400.0350 #### [facility] (refer to report for specific site) refer to report for address and phone number ALLERGIES ALLERGIES DATE TYPE / CODE NAME / CODE REACTION SEVERITY SOURCE 08/21/2018 Drug No Known Unknown [place] [facility] Allergy/4160 Allergies/F00 [facility] [address]463(SNOMED 0257846(RXNOR Repository CT) M) ENCOUNTERS ENCOUNTERS ADMIT/DISCHARGE ACCOUNT ADMITTING ENCOUNTER LOCATION SOURCE NUMBER CLASS 08/22/2018 [id number] Ambulatory BMSBuilding:B [place] 5 [place].CF.[facility] Repository 08/22/2018 [id number] Amb[place] 0 [facility] ing:B[place]AD Repository 08/21/2018/ [id number] Ambulatory BMSBuilding:B [place] 9 5 MS.[facility] Repository 08/16/2018 [id number] Amb[place] 2 [facility] ing:OPBI Repository 08/07/2018 [id number] Ambulatory [place] 9 [facility] ing:MRI Repository 07/20/2018 [id number] Ambulatory [place] 2 [facility] ing:OPBI Repository 11/17/2017 [id number] Ambulatory [place] 1 [facility] ing:LABSPEC Repository PAYERS PAYERS ENCOUNTER GUARANTOR PAYER SUBSCRIBER SOURCE 08/22/2018 ANDREW Paiz Primary ALEE Muñoz [id number] Insurance:[employer]AREPol CHIOFALODOB: Community [place]ER icy Number: [id number] [id number] Repository [address]: 330) Date:3159-78-08FR [phone] () [address], [place] [address]BE: 08/22/2018 Secondary NOT GIVENUNK [place] Insurance:SELF PAY [facility] Number: Effective Repository Date:2018-08-22 08/22/2018 ANDREW Paiz Primary ALEE Muñoz [id number] Insurance:[employer]ULTCAREPol CHIOFALODOB: [facility] [employer] icy Number: [id number], [place] [id number] Repository [address]ln: (330) Date:4128-42-17GS [phone] () [address], [place] [address]DP: 08/22/2018 Secondary NOT GIVENUNK [place] Insurance:SELF PAY [facility] Number: Effective Repository Date:2018-08-21 08/21/2018 ANDREW Paiz Primary ALEE Muñoz [id number] Insurance:[employer]ULTCAREPol CHIOFALODOB: [facility] [employer] icy Number: [id number], [place] [id number] Repository [address]Dor: (330) Date:5551-02-11AB [phone] () [address], [place] [address]UD: 08/21/2018 Secondary NOT GIVENUNK [place] Insurance:SELF PAY [facility] Number: Effective Repository Date:2018-08-20 08/16/2018 ALEE D Primary ALEE Silvia [place] [id number] Insurance:[employer]ULTCAREPol CHIOFALODOB: Community SMSTACIA icy Number: [id number], [place] [id number] Repository [address]Mtx: (330) e Date:3267-60-90BT [phone] () [address], [place] [address]YX: 08/16/2018 Secondary NOT GIVENUNK [place] Insurance:SELF PAY [facility] Number: Effective Repository Date:2018-08-10 08/07/2018 ALEE D Primary ALEE D [place] [id number] Insurance:[employer]ULTCAREPol [facility]OB[facility] Number: [id number], [place] [id number] Repository [address]Hwz: 330) e Date:2632-97-96TL [phone] () [address], [place] [address]BH: 08/07/2018 Secondary ANDREW M [place] Insurance:[facility] CHIOFALODOB: [facility] Number: [id number] 0Effective Repository Date:2018-07-27 08/07/2018 Tertiary NOT GIVENUNK [place] Insurance:SELF PAY [facility] Number: Effective Repository Date:2018-07-27 07/20/2018 ALEE D Primary ALEE D [place] [id number] Insurance:[employer]UL[employer]AREPol CHIOFALODOB: [facility] MoatSTACIA icy Number: [id number], [place] [id number] Repository [address]Yns: (330) e Date:1098-14-91CU [phone] () [address], [place] [address]PS: 07/20/2018 Secondary NOT GIVENUNK [place] Insurance:SELF PAY [facility] Number: Effective Repository Date:2018-07-13 11/17/2017 Alee [id number] Primary Alee [place] Smucker Insurance:[employer]ULTCAREPol ChiofaloDOB: [place] icy Number: [id number] [facility] [address]Cwt: (532) [id number] Repository [phone] () e Date:4214-34-98[address], [place] [address]TG: 11/17/2017 Secondary NOT GIVENUNK [place] Insurance:SELF PAY [facility] Number: Effective Repository Date:2017-11-17
== END ==
PROVIDERS: Visit Provider Surgery
DX: N62 Hypertrophy of breast (principal); R92.0 Mammographic microcalcification found on diagnostic imaging of breast
CPT/HCPCS: 19081; 88305; J7050; A4648

== ENCOUNTER → 2018-11-20 13:52 | Outpatient (CLI) | payer OTHER, SELFPAY ==
[2018-09-05 09:13] VITALS: BMI 25.6
[2018-11-23 13:28] LABS: HPV Reflexed? NOT INDICATED
== END ==
PROVIDERS: Visit Provider Obstetrics & Gynecology
DX: Z12.4 Encounter for screening for malignant neoplasm of cervix (principal)
CPT/HCPCS: 88175; G0145